=== PATIENT | male | born 1960 | race Caucasian/White ===

== ENCOUNTER 2016-06-18 07:51 | Emergency (ER) | payer MEDICAID ==
[~2016-06-18] VITALS: Ht 177.8 cm; Wt 152.0 kg
[2016-06-18 07:51] VITALS: BP 165/103; PULSE 93; RESP 19; TEMP 97.8; O2SAT 99
--- NOTE | 2016-06-18 07:51 | NUR ---
BROUGHT BACK TO BED #3 AND TRIAGED. REPORT GIVEN TO REBEKAH
[2016-06-18 08:16] LABS: BILIRUBIN,URINE 1+ (NEGATIVE); BLOOD, URINE NEGATIVE (NEGATIVE); CLARITY/URINE CLEAR (CLEAR); COLOR,URINE AMBER (YELLOW); GLUCOSE,URINE 3+ (NEGATIVE); KETONES,URINE TRACE (NEGATIVE); LEUKOCYTE ESTERASE ,URINE NEGATIVE (NEGATIVE); NITRITE, URINE POSITIVE (NEGATIVE); PH,URINE 5.5 (5.0-8.0); PROTEIN URINE TRACE (NEGATIVE)
--- NOTE | 2016-06-18 08:16 | NUR ---
Patient awake in bed, stable condition, alert and oriented x4. States has had a UTI for two weeks that he was treating at home with Azo and cranberry juice but is not working. States symptoms for 2 weeks include: burning with urination, urinary frequency and urgency. Denies hematuria. No other complaints/injuries per patient or noted.
--- NOTE | 2016-06-18 08:17 | NUR ---
Dr. Frazier at bedside examining patient.
[2016-06-18 08:27] LABS: BACTERIA,URINE FEW /HPF (None Seen); MUCUS,URINE None Seen /LPF (None Seen); RBC,URINE 0-3 /HPF (0-3); WBC,URINE 0-3 /HPF (0-3)
[2016-06-18 08:56] VITALS: BP 154/87; PULSE 89; RESP 18; TEMP 97.2; O2SAT 98
--- NOTE | 2016-06-18 08:57 | NUR ---
Patient given written and verbal discharge instructions and verbalizes understanding. ER MD discussed with patient the results and treatment provided. Given copies of tests performed in ER. Patient in stable condition. ID arm band removed. Rx of CIPRO given. Patient educated on pain management and to follow up with PMD. Pain Scale 0/10. Opportunity for questions provided and answered.
== END 2016-06-18 08:56 | disposition home or self-care (01) ==
LOC: SED 07:51
DX: N30.90 Cystitis, unspecified without hematuria (principal); E11.9 Type 2 diabetes mellitus without complications; I10 Essential (primary) hypertension
CPT/HCPCS: 81000-TC; 99283

== ENCOUNTER 2016-09-15 11:22 | Emergency (ER) | payer MEDICAID ==
[~2016-09-15] VITALS: Ht 177.8 cm; Wt 148.3 kg
[2016-09-15 11:30] VITALS: BP_SYST 135
[2016-09-15 12:07] LABS: BILIRUBIN,URINE NEGATIVE (NEGATIVE); BLOOD, URINE NEGATIVE (NEGATIVE); CLARITY/URINE CLEAR (CLEAR); COLOR,URINE YELLOW (YELLOW); GLUCOSE,URINE 3+ (NEGATIVE); KETONES,URINE NEGATIVE (NEGATIVE); LEUKOCYTE ESTERASE ,URINE NEGATIVE (NEGATIVE); NITRITE, URINE NEGATIVE (NEGATIVE); PROTEIN URINE NEGATIVE (NEGATIVE); UROBILINOGEN,URINE 0.2 (0.2-1.0)
[2016-09-15 12:17] LABS: BASOPHILS % (AUTO) 0.5 % (0.0-2.0); EOSINOPHILS # (AUTO) 0.4 K/uL (0.0-0.4); EOSINOPHILS % (AUTO) 6.8 % (0.0-4.0); HEMATOCRIT 42.8 % (36-54); HEMOGLOBIN 14.1 g/dL (14.0-18.0); LYMPHOCYTES # (AUTO) 1.8 K/uL (1.0-5.5); LYMPHOCYTES % (AUTO) 30.1 % (20.5-51.5); MEAN CORPUSCULAR HEMOGLOBIN 29 pg (27-31); MEAN CORPUSCULAR HGB CONC 33 % (32-36); MEAN CORPUSCULAR VOLUME 88 fL (79.0-98.0); MONOCYTES # (AUTO) 0.4 K/uL (0.0-1.0); MONOCYTES % (AUTO) 6.4 % (1.7-9.3); NEUTROPHILS # (AUTO) 3.5 K/uL (1.8-7.7); NEUTROPHILS % (AUTO) 56.2 % (40.0-70.0); PLATELET COUNT (AUTO) 262 K/uL (130-430); RED BLOOD CELL COUNT(AUTO) 4.85 MIL/uL (4.2-6.2); RED CELL DISTRIBUTION WIDTH 12.6 % (9.0-15.0); WHITE BLOOD COUNT (AUTO) 6.1 K/uL (4.8-10.8)
[2016-09-15 12:18] LABS: CALCIUM 9.6 mg/dL (8.4-11.0); CREATININE 0.99 mg/dL (0.55-1.30); POTASSIUM 4.5 mmol/L (3.5-5.1)
[2016-09-15 12:19] LABS: BACTERIA,URINE FEW /HPF (None Seen); MUCUS,URINE None Seen /LPF (None Seen); RBC,URINE 0-3 /HPF (0-3)
[2016-09-15 12:22] LABS: INR 0.9 (0.80-1.20); PROTHROMBIN TIME 10.1 SECS (9.5-12.5)
[2016-09-15 12:23] LABS: ALBUMIN 4.1 g/dL (3.4-4.8); TOTAL BILIRUBIN 0.5 mg/dL (0.0-1.0); TOTAL PROTEIN, SERUM 7.8 g/dL (6.4-8.3)
[2016-09-15] MEDS ORDERED: INSULIN REGULAR, HUMAN 10 UNITS/0.1 ML INJ SUBCUT ONE (12:45)
[2016-09-15 13:27] VITALS: BP_SYST 130
== END 2016-09-15 13:26 | disposition home or self-care (01) ==
LOC: SED 11:22
DX: E11.65 Type 2 diabetes mellitus with hyperglycemia (principal); I10 Essential (primary) hypertension; R35.8 Other polyuria; E66.01 Morbid (severe) obesity due to excess calories; Z68.42 Body mass index [BMI] 45.0-49.9, adult
CPT/HCPCS: 36415; 80053; 81000; 82150; 83690; 85025; 85610; 85730; 87086; 96372; 99284; J1815

== ENCOUNTER 2021-08-15 08:34 | Inpatient (IN) | payer MEDICAID ==
[~2021-08-15] VITALS: Ht 177.8 cm; Wt 189.6 kg
--- NOTE | 2021-08-15 08:35 | NUR ---
Patient to ER bed 08 to gown for evaluation. Side rails up.
--- NOTE | 2021-08-15 08:37 | NUR ---
Pt brought by caregiver, A&Ox4, pt presents to ER with wound/ yellow drainage and fould odor on L foot x 1 week, pt afebrile, skin pink and warm,cap refill <3, VSS, respirations even and unlabored.
[2021-08-15 08:47] VITALS: BP_SYST 179
--- NOTE | 2021-08-15 08:50 | NUR ---
Dr Marion evaluating patient at bedside
[2021-08-15] MEDS ORDERED: PIPERACILLIN/TAZO 3.38 GM in D5W 50 ML IV ONE (09:30)
[2021-08-15] MEDS ORDERED: VANCOMYCIN HCL 1,500 MG in D5W 250 ML IV ONE (09:30)
[2021-08-15] MEDS ORDERED: metroNIDAZOLE 500 MG TABLET PO ONE (09:30)
[2021-08-15] MEDS ORDERED: PIPERACILLIN/TAZOBACTAM 3.375 GM/VIAL (ZOSYN) IV ONE (09:40)
[2021-08-15 09:53] LABS: BASOPHILS # (AUTO) 0.1 K/uL (0.0-0.2); BASOPHILS % (AUTO) 0.8 % (0.0-2.0); EOSINOPHILS # (AUTO) 0.2 K/uL (0.0-0.4); EOSINOPHILS % (AUTO) 3.3 % (0.0-4.0); HEMATOCRIT 35.1 % (36-54); HEMOGLOBIN 11.7 g/dL (14.0-18.0); LYMPHOCYTES # (AUTO) 1.2 K/uL (1.0-5.5); LYMPHOCYTES % (AUTO) 17.2 % (20.5-51.5); MEAN CORPUSCULAR HEMOGLOBIN 28 pg (27-31); MEAN CORPUSCULAR HGB CONC 33 % (32-36); MEAN CORPUSCULAR VOLUME 84 fL (79.0-98.0); MONOCYTES # (AUTO) 0.6 K/uL (0.0-1.0); MONOCYTES % (AUTO) 8.3 % (1.7-9.3); NEUTROPHILS % (AUTO) 70.4 % (40.0-70.0); PLATELET COUNT (AUTO) 279 K/uL (130-430); RED CELL DISTRIBUTION WIDTH 15.4 % (9.0-15.0)
--- NOTE | 2021-08-15 10:10 | NUR ---
US at bedside
[2021-08-15 10:11] LABS: ALANINE AMINOTRANSFERASE 24 U/L (12-78); ALBUMIN 3.6 g/dL (3.4-4.8); ASPARTATE AMINOTRANSFERASE 16 U/L (10-37); CALCIUM 9.2 mg/dL (8.4-11.0); CREATININE 1.06 mg/dL (0.55-1.30); GLUCOSE 125 mg/dL (70-99); TOTAL BILIRUBIN 0.7 mg/dL (0.0-1.0); UREA NITROGEN, BLOOD 15 mg/dL (8-21)
[2021-08-15 10:13] LABS: C-REACTIVE PROTEIN QUANT 3.8 mg/dL (0-0.5); GFR AFRICAN AMERICAN 92 mL/min (>90)
[2021-08-15 10:23] LABS: ANION GAP 12 (5-15); CHLORIDE 100 mmol/L (98-107); POTASSIUM 4.2 mmol/L (3.5-5.1); SODIUM SERUM 139 mmol/L (136-145)
[2021-08-15 10:30] LABS: PROTHROMBIN TIME 10.7 SECS (9.5-12.5)
--- NOTE | 2021-08-15 10:34 | NUR ---
Notified ED Admitting regarding Dr. Marion's request for admission/transfer. Per Dr. Marion, pt is stable for transfer. Will notify insurance customer service specialist regarding this matter. PER FACESHEET: [facility]
[2021-08-15 10:36] LABS: ERYTHROCYTE SEDIMENTATION RATE 37 MM/HR (0-15)
[2021-08-15] MEDS ORDERED: VANCOMYCIN HCL 1000 MG/VIAL IV ONE (10:45)
--- NOTE | 2021-08-15 10:45 | NUR ---
Pt A&Ox4, VSS, respirations even and unlabored, cap refill <3
[2021-08-15] MEDS ORDERED: LIP10 PO (10:53)
[2021-08-15] MEDS ORDERED: METF-380 PO (10:53)
[2021-08-15] MEDS ORDERED: ATEN-41 PO (10:53)
[2021-08-15] MEDS ORDERED: GLIP10TA11 PO (10:53)
[2021-08-15] MEDS ORDERED: PIOG30TA70 PO (10:53)
[2021-08-15] MEDS ORDERED: AMLO2.5T2 PO (10:53)
--- NOTE | 2021-08-15 11:07 | NUR ---
Medication reconciliation completed with information provided by patient . Any prior medication reconciliation on file was reviewed and corrected.
[2021-08-15] MEDS ORDERED: NACL 0.9% 1,000 ML IV ONE (11:15)
--- NOTE | 2021-08-15 11:40 | NUR ---
Patient will be admitted to care of Dr Hodge . Admitted to Medsurg unit. Will go to room 101A . Belongings list completed. Complete and up to date summary report printed. SBAR report to be given at bedside with opportunity for questions.
--- NOTE | 2021-08-15 11:41 | NUR ---
CONSULTATION PAGED/CALLED Reason for Consultation: [] DIABETIC FOOT INFECTION Person Who was Notified: [] ZORAN Consulting Physician: [] DR MELENDEZ Cleaning Professional Specialty: [] ID Ordering Physician: [] DR HERNANDEZ
--- NOTE | 2021-08-15 11:42 | NUR ---
CONSULTATION PAGED/CALLED Reason for Consultation: [] DIABETIC FOOT INFECTION Person Who was Notified: [] PETRONA RODRIGUEZ TEL [phone] Consulting Physician: [] DR JOLIE WALLER Head Sulfide Operator Specialty: [] GEN SURGEON Ordering Physician: [] DR HERNANDEZ
--- NOTE | 2021-08-15 11:49 | NUR ---
DR WALLER INFORMED THAT HE DOES NOT DO PODIATRY SURGERIES.
--- NOTE | 2021-08-15 12:00 | NUR ---
ADMISSION NOTES CAME FROM E.R VIA WHEELCHAIR, 61 YEAR OLD MALE OBESE, WITH BILATERAL LOWER LEG CELLULITIS, PRESENCE OF DISOCLORATION, MULTIPLE SCAB, FLAKY SKIN, LEFT PLANTAR FOOT PRESENCE OF BLACK NECROTIC TISSUE. PATIENT UNSTEADY DUE TO OBESITY AND PRESENCE OF EDEMA AND LEFT FOOT ULCER . USED WALKER TO GO TO THE BATHROOM. NEEDS ASSISTANCE TO BED DUE TO OBESITY. SEEN BY DR HERNANDEZ, WITH CONSULT WITH DR WHITE. PHOTO TAKEN ON BILATERAL LEGS AND WOUND.
[2021-08-15] MEDS ORDERED: ONDANSETRON HCL 4 MG/2 ML VIAL IVP PRN (12:15)
[2021-08-15] MEDS ORDERED: LORazepam 2 MG/ML VIAL IVP PRN (12:15)
[2021-08-15] MEDS ORDERED: ACETAMINOPHEN 325 MG TABLET PO PRN (12:15)
[2021-08-15] MEDS ORDERED: NALOXONE HCL 0.4 MG/ML AMP (NARCAN) IVP PRN ×2 (12:15)
[2021-08-15 12:35] VITALS: BP_SYST 148
[2021-08-15] MEDS: NORMAL SALINE 5 ML DISP.SYRIN IVF SCH ×4 (15:28→23:25)
[2021-08-15] MEDS: PIPERACILLIN/TAZO 3.375/DEX-IS 50 ML IV SCH ×2 (17:03→23:38)
[2021-08-15 17:13] VITALS: BP_SYST 147
--- NOTE | 2021-08-15 17:35 | NUR ---
CONSULTATION PAGED/CALLED Reason for Consultation: [] DIABETIC FOOT INFECTION Person Who was Notified: [] BRITTNEE Consulting Physician: [] DR MONTES, A Staffing Manager Specialty: [] GEN SURGEON Ordering Physician: [] DR HERNANDEZ
--- NOTE | 2021-08-15 17:52 | NUR ---
notes pt sitting in chair, having dinner, IV abt given.
[2021-08-15 19:42] VITALS: BP_SYST 132
[2021-08-15 20:53] VITALS: BP_SYST 132
--- NOTE | 2021-08-15 20:55 | NUR ---
2000: RECEIVED PT SITTING AT EDGE OF BED, NO DISTRESS NOTED, DENIES PAIN. PT AMBULATED TO BATHROOM USING A WALKER, STANDBY ASSIST. BLE WITH EDEMA, DECOLORIZATION, DRYNESS, THICKENED SKIN, DRSG TO LLE CDI.
[2021-08-15] MEDS: ENOXAPARIN SODIUM 40 MG/0.4 ML SYRINGE SUBCUT SCH (21:46)
[2021-08-15] MEDS: ATORVASTATIN 10 MG TABLET PO SCH (21:48)
[2021-08-16 00:50] VITALS: BP_SYST 127
[2021-08-16 02:36] LABS: BILIRUBIN,URINE NEGATIVE (NEGATIVE); BLOOD, URINE 2+ (NEGATIVE); CLARITY/URINE CLEAR (CLEAR); COLOR,URINE YELLOW (YELLOW); GLUCOSE,URINE NEGATIVE (NEGATIVE); KETONES,URINE NEGATIVE (NEGATIVE); LEUKOCYTE ESTERASE ,URINE 1+ (NEGATIVE); NITRITE, URINE NEGATIVE (NEGATIVE); PROTEIN URINE TRACE (NEGATIVE); UROBILINOGEN,URINE 0.2 (0.2-1.0)
[2021-08-16 03:34] LABS: RBC,URINE 20-50 /HPF (0-3); URINE SULFO SALICYLIC ACID NEGATIVE (NEGATIVE)
[2021-08-16 03:35] LABS: BACTERIA,URINE None Seen /HPF (None Seen); YEAST,URINE Moderate /HPF (None Seen)
[2021-08-16 03:36] LABS: CALCIUM OXALATE CRYSTALS,UR None Seen /HPF (None Seen); CALCIUM PHOSPHATE CRYSTALS,UR None Seen /HPF (None Seen); COARSE GRANULAR CASTS,URINE None Seen /LPF (None Seen); FINE GRANULAR CASTS,URINE None Seen /LPF (None Seen); HYALINE CASTS, URINE None Seen /LPF (None Seen); MUCUS,URINE None Seen /LPF (None Seen); OTHER CASTS, URINE None Seen /LPF (None Seen); OTHER CRYSTALS,URINE None Seen /HPF (None Seen); TRICHOMONAS,URINE None Seen /HPF (None Seen); TRIPLE PHOSPHATE CRYSTAL,UR None Seen /HPF (None Seen); URIC ACID CRYSTALS,URINE None Seen /HPF (None Seen); URINE AMORPHOUS PHOSPHATES None Seen /HPF (None Seen); URINE AMORPHOUS URATE None Seen /HPF (None Seen); WAXY CASTS,URINE None Seen /LPF (None Seen)
[2021-08-16] MEDS: PIPERACILLIN/TAZO 3.375/DEX-IS 50 ML IV SCH ×3 (05:20→17:22)
[2021-08-16] MEDS: NORMAL SALINE 5 ML DISP.SYRIN IVF SCH ×4 (05:21→21:20)
[2021-08-16 05:27] VITALS: BP_SYST 120
[2021-08-16 08:20] VITALS: BP_SYST 126
[2021-08-16 08:50] LABS: BASOPHILS % (AUTO) 0.5 % (0.0-2.0); EOSINOPHILS # (AUTO) 0.2 K/uL (0.0-0.4); EOSINOPHILS % (AUTO) 3.5 % (0.0-4.0); HEMATOCRIT 32.8 % (36-54); LYMPHOCYTES # (AUTO) 1.1 K/uL (1.0-5.5); LYMPHOCYTES % (AUTO) 16.1 % (20.5-51.5); MEAN CORPUSCULAR HEMOGLOBIN 28 pg (27-31); MEAN CORPUSCULAR HGB CONC 34 % (32-36); MEAN CORPUSCULAR VOLUME 83 fL (79.0-98.0); MONOCYTES # (AUTO) 0.6 K/uL (0.0-1.0); MONOCYTES % (AUTO) 8.7 % (1.7-9.3); NEUTROPHILS # (AUTO) 4.8 K/uL (1.8-7.7); NEUTROPHILS % (AUTO) 71.2 % (40.0-70.0); PLATELET COUNT (AUTO) 259 K/uL (130-430); RED BLOOD CELL COUNT(AUTO) 3.96 MIL/uL (4.2-6.2); RED CELL DISTRIBUTION WIDTH 15.3 % (9.0-15.0); WHITE BLOOD COUNT (AUTO) 6.7 K/uL (4.8-10.8)
[2021-08-16] MEDS: ATENOLOL 25 MG TABLET(TENORMIN) PO SCH (09:00)
[2021-08-16] MEDS: amLODIPine BESYLATE 5 MG TABLET PO SCH (09:00)
[2021-08-16] MEDS: PIOGLITAZONE HCL 15 MG TABLET PO SCH (09:00)
[2021-08-16 09:50] LABS: ALBUMIN 3.3 g/dL (3.4-4.8); CALCIUM 8.5 mg/dL (8.4-11.0); CREATININE 0.82 mg/dL (0.55-1.30); PHOSPHORUS 3.5 mg/dL (2.7-4.5); POTASSIUM 3.7 mmol/L (3.5-5.1)
[2021-08-16 11:32] VITALS: BP_SYST 135
[2021-08-16] MEDS: HYDROmorphone 1 MG/ML INJ. CARTRIDGE ONE ×2 (11:50→14:50)
[2021-08-16] MEDS ORDERED: HYDROmorphone 1 MG/ML INJ. CARTRIDGE IVP PRN (14:00)
[2021-08-16] MEDS ORDERED: NACL 0.9% 1,000 ML IV SCH (14:00)
[2021-08-16] MEDS ORDERED: METOCLOPRAMIDE HCL 10 MG/2 ML VIAL IVP PRN (14:00)
[2021-08-16] MEDS ORDERED: ONDANSETRON HCL 4 MG/2 ML VIAL IVP PRN (14:00)
[2021-08-16] MEDS ORDERED: MEPERIDINE HCL/PF 25 MG/ML DISP.SYRIN IVP PRN (14:00)
[2021-08-16] MEDS ORDERED: NS 1000 ML IV.SOLN IV ONE (14:30)
[2021-08-16] MEDS ORDERED: NS IRRIG SOLN 1000 ML IR ONE (14:30)
[2021-08-16] MEDS ORDERED: BUPIVACAINE /PF 0.25% 30 ML VIAL INJ ONE (14:30)
[2021-08-16] MEDS ORDERED: fentaNYL CITRATE/PF 100 MCG/2 ML AMP ONE (14:30)
[2021-08-16] MEDS ORDERED: SEVOFLURANE 15 MIN GAS INH ONE (14:30)
[2021-08-16] MEDS ORDERED: PROPOFOL 200MG/ 20ML VIAL (DIPRIVAN) IV ONE (14:30)
[2021-08-16] MEDS: FLUCONAZOLE 100 mg/ NS 50 ML IV SCH (15:52)
[2021-08-16 16:03] VITALS: BP_SYST 139
[2021-08-16] MEDS: VANCOMYCIN HCL 1,750 MG in NS 500 ML IV SCH ×2 (16:12→21:19)
--- NOTE | 2021-08-16 18:32 | NUR ---
0800: PATIENT IS ASLEEP EASILY AROUSABLE WITH VERBAL STIMULI, ORIENTED X 4 TO NAME, PERSON, PLACE AND TIME. RESPIRATION EVEN AND UNLABORED NO S/S OF ANY ACUTE DISTRESS NOTED. ABLE TO VERBALIZE NEEDS NO C/O ANY PAIN OR DISCOMFORT @ THIS TIME. ABDOMEN SOFT AND NON-DISTENDED, POSITIVE BOWEL SOUND X 4NO N/V OR DIARRHEA NOTED. SKIN WARM AND DRY WITH DIABETIC ULCER LEFT FOOT. NPO SCHEDULE FOR I&D AND DEBRIDEMENT TODAY WITH DR. Yanet MONTES. 1130: PATIENT LEFT THE UNIT FOR SURGERY PROCEDURE PLANNED. 1420: BACK FROM SURGERY WITH DRESSING INTACT LEFT FOOT NO S/S OF ANY BLEEDING NOTED. PULSES PALPABLE WITH CONTINUE TO MONITOR PATIENT. 1800: ADMINISTERED ALL IV ANTIBIOTIC ORDERED W/O ANY ADVERSE REACTION NOTED. WILL CONTINUE TO MONITOR PATIENT.
[2021-08-16 21:00] VITALS: BP_SYST 137
--- NOTE | 2021-08-16 21:12 | NUR ---
ASSIST Patient out of bed to Rest Room ambulated with FFW , no SOB noted no dizzy ness FALL MEASURES IMPLEMENTED , CALL rubio given to patient .
[2021-08-16] MEDS: ATORVASTATIN 10 MG TABLET PO SCH (21:17)
[2021-08-16] MEDS: HYDROcodone/ACETAMIN 10-325 MG TAB PO PRN (21:18)
[2021-08-16] MEDS: ENOXAPARIN SODIUM 40 MG/0.4 ML SYRINGE SUBCUT SCH (21:20)
--- NOTE | 2021-08-16 22:58 | NUR ---
LEFT FOOT CATERINA WRAP small amount of sero sang drainage noted Patient awake alert NO ACTIVE BLEEDING CONTINUE TO MONITOR .
--- NOTE | 2021-08-16 23:13 | NUR ---
Munday Tablet 10/325 mg po administer for general pain and helpful , off loading with pillows implemented .
[2021-08-17] MEDS: PIPERACILLIN/TAZO 3.375/DEX-IS 50 ML IV SCH ×3 (00:27→12:17)
[2021-08-17 00:31] VITALS: BP_SYST 136
[2021-08-17] MEDS: VANCOMYCIN HCL 1,750 MG in NS 500 ML IV SCH ×2 (05:05→13:00)
[2021-08-17] MEDS: NORMAL SALINE 5 ML DISP.SYRIN IVF SCH ×3 (05:06→21:21)
[2021-08-17] MEDS: HYDROcodone/ACETAMIN 10-325 MG TAB PO PRN ×2 (05:07→14:59)
[2021-08-17 06:30] LABS: CALCIUM 8.4 mg/dL (8.4-11.0); CREATININE 0.79 mg/dL (0.55-1.30); POTASSIUM 3.5 mmol/L (3.5-5.1)
[2021-08-17 07:10] LABS: BASOPHILS % (AUTO) 0.4 % (0.0-2.0); EOSINOPHILS # (AUTO) 0.2 K/uL (0.0-0.4); EOSINOPHILS % (AUTO) 3.5 % (0.0-4.0); HEMATOCRIT 33.8 % (36-54); HEMOGLOBIN 11.3 g/dL (14.0-18.0); LYMPHOCYTES # (AUTO) 1.1 K/uL (1.0-5.5); LYMPHOCYTES % (AUTO) 15.2 % (20.5-51.5); MEAN CORPUSCULAR HEMOGLOBIN 28 pg (27-31); MEAN CORPUSCULAR HGB CONC 33 % (32-36); MEAN CORPUSCULAR VOLUME 83 fL (79.0-98.0); MONOCYTES # (AUTO) 0.6 K/uL (0.0-1.0); MONOCYTES % (AUTO) 8.8 % (1.7-9.3); NEUTROPHILS # (AUTO) 5.1 K/uL (1.8-7.7); NEUTROPHILS % (AUTO) 72.1 % (40.0-70.0); PLATELET COUNT (AUTO) 263 K/uL (130-430); RED BLOOD CELL COUNT(AUTO) 4.05 MIL/uL (4.2-6.2); RED CELL DISTRIBUTION WIDTH 15.2 % (9.0-15.0); WHITE BLOOD COUNT (AUTO) 7.1 K/uL (4.8-10.8)
[2021-08-17] MEDS: PIOGLITAZONE HCL 15 MG TABLET PO SCH (09:17)
[2021-08-17] MEDS: amLODIPine BESYLATE 5 MG TABLET PO SCH (09:18)
[2021-08-17] MEDS: ATENOLOL 25 MG TABLET(TENORMIN) PO SCH (09:19)
--- NOTE | 2021-08-17 09:53 | NUR ---
Discharge Planning: SCP faxed referral to [facility] P# [phone] PT/IV meds. DCP to follow up. Addendum: 08/17/21 at 1529 by Tiffany Rodriguez DP Radha at [facility] gave contracted home health 1) [facility] P#[phone] F#[phone] and [facility] P#[phone] F#[phone] SCP faxed pt referral to both.
[2021-08-17] MEDS ORDERED: IOHEXOL 350 mgI/mL, 150 ML INFUS..BTL IV ONE (10:26)
[2021-08-17] MEDS: FLUCONAZOLE 100 mg/ NS 50 ML IV SCH (11:00)
[2021-08-17 11:12] LABS: ERYTHROCYTE SEDIMENTATION RATE 41 MM/HR (0-15)
[2021-08-17 11:59] VITALS: BP_SYST 142
--- NOTE | 2021-08-17 13:42 | NUR ---
Dietitian Recommendations 2gmNa, cardiac, CCHO. Prosper BID (supplement provides an additional 160 kcals/day and 5 g protein/day. Please refer to Nutrition Assessment 08/17/21 for details. Signed: 08/17/21 at 1343 by Sharon BROWN <Co-Signature Required> Co-Signed: 08/17/21 at [address] Addendum: 08/17/21 at 1343 by Sharon BROWN Amended: Links added.
--- NOTE | 2021-08-17 16:44 | NUR ---
HIGH ALERT NOTE: Called back at NUMBERS identified within the medical roster to verify physician authenticity.OBTAINED ORDER FOR REGULR INSULIN SLIDING SCALE
[2021-08-17 16:55] VITALS: BP_SYST 128
[2021-08-17] MEDS ORDERED: INSULIN REGULAR, HUMAN 100 UNITS/ML, 10 ML VIAL (humuLIN R) SUBCUT PRN (17:00)
[2021-08-17] MEDS ORDERED: INSULIN REGULAR, HUMAN 100 UNITS/ML, 10 ML VIAL SUBCUT SCH (17:00)
[2021-08-17] MEDS: AMPICILLIN SODIUM 2 GM in NS 100 ML IV SCH (18:22)
[2021-08-17 20:00] VITALS: BP_SYST 144
[2021-08-17] MEDS: ATORVASTATIN 10 MG TABLET PO SCH (21:15)
[2021-08-17] MEDS: ENOXAPARIN SODIUM 40 MG/0.4 ML SYRINGE SUBCUT SCH (21:20)
--- NOTE | 2021-08-17 21:33 | NUR ---
MEDS Scheduled medications given. Reviewed side effects (Lovenox) and he verbalized understanding. He ambulated to restroom with use of FWW and I assisted with return to bed. Sanguinous drainage noted and reinforced with ABD pad and re-wrapped CATERINA bandabe. Presently no pain. Requested warm blanket and it was provided. Resting in bed, no distress and call light w/in reach. WCTM
[2021-08-18] MEDS: HYDROcodone/ACETAMIN 5-325 MG TAB (NORCO/ VICODIN) PO PRN ×3 (00:24→22:29)
[2021-08-18 00:25] VITALS: BP_SYST 149
[2021-08-18] MEDS: AMPICILLIN SODIUM 2 GM in NS 100 ML IV SCH ×5 (00:25→23:50)
--- NOTE | 2021-08-18 00:25 | NUR ---
Antibiotic, Pain med Patient is awake, no distress. He ambulated to restroom; voided and had a bowel movement. Returned to bed. Due antibiotic, Ampicillin administered and infusing well via RAC. [place] given for moderate pain (08/15). Reviewed medication side effects and he verbalized understanding.
[2021-08-18] MEDS: NORMAL SALINE 5 ML DISP.SYRIN IVF SCH ×3 (05:17→22:15)
[2021-08-18 06:40] LABS: BASOPHILS % (AUTO) 0.6 % (0.0-2.0); EOSINOPHILS # (AUTO) 0.3 K/uL (0.0-0.4); HEMATOCRIT 34.4 % (36-54); HEMOGLOBIN 11.6 g/dL (14.0-18.0); LYMPHOCYTES # (AUTO) 1.3 K/uL (1.0-5.5); LYMPHOCYTES % (AUTO) 18.9 % (20.5-51.5); MEAN CORPUSCULAR HEMOGLOBIN 28 pg (27-31); MEAN CORPUSCULAR HGB CONC 34 % (32-36); MEAN CORPUSCULAR VOLUME 83 fL (79.0-98.0); MONOCYTES # (AUTO) 0.7 K/uL (0.0-1.0); MONOCYTES % (AUTO) 9.7 % (1.7-9.3); NEUTROPHILS # (AUTO) 4.6 K/uL (1.8-7.7); NEUTROPHILS % (AUTO) 66.8 % (40.0-70.0); PLATELET COUNT (AUTO) 277 K/uL (130-430); RED BLOOD CELL COUNT(AUTO) 4.13 MIL/uL (4.2-6.2); RED CELL DISTRIBUTION WIDTH 15.6 % (9.0-15.0); WHITE BLOOD COUNT (AUTO) 6.9 K/uL (4.8-10.8)
[2021-08-18 08:50] LABS: C-REACTIVE PROTEIN QUANT 6.6 mg/dL (0-0.5); CALCIUM 8.6 mg/dL (8.4-11.0); CREATININE 0.83 mg/dL (0.55-1.30); POTASSIUM 3.6 mmol/L (3.5-5.1)
[2021-08-18 09:35] LABS: ERYTHROCYTE SEDIMENTATION RATE 47 MM/HR (0-15)
--- NOTE | 2021-08-18 09:53 | NUR ---
PHYSICAL THERAPY EVALUATION IS PENDING LEFT FOOT WEIGHT BEARING ORDER. RN IS TO CONTACT .
[2021-08-18] MEDS ORDERED: ATEN-41 PO (09:59)
[2021-08-18] MEDS ORDERED: LIP10 PO (09:59)
[2021-08-18] MEDS ORDERED: AMPI2VIA IJ (09:59)
[2021-08-18] MEDS ORDERED: GLIP10TA11 PO (09:59)
[2021-08-18] MEDS ORDERED: METF-380 PO (09:59)
[2021-08-18] MEDS ORDERED: AMLO2.5T2 PO (09:59)
[2021-08-18] MEDS ORDERED: HYDR-3927 PO (09:59)
[2021-08-18] MEDS ORDERED: HYDR-3919 PO (09:59)
[2021-08-18] MEDS ORDERED: PIOG30TA70 PO (09:59)
[2021-08-18] MEDS ORDERED: DIF100 PO (10:03)
[2021-08-18] MEDS: PIOGLITAZONE HCL 15 MG TABLET PO SCH (10:06)
[2021-08-18] MEDS: amLODIPine BESYLATE 5 MG TABLET PO SCH (10:07)
[2021-08-18 11:15] LABS: INR 1.1 (0.80-1.20); PROTHROMBIN TIME 11.5 SECS (9.5-12.5)
[2021-08-18] MEDS: FLUCONAZOLE 100 mg/ NS 50 ML IV SCH (11:21)
[2021-08-18 12:20] VITALS: BP_SYST 148
[2021-08-18] MEDS: ATENOLOL 25 MG TABLET(TENORMIN) PO SCH (13:51)
[2021-08-18 16:26] VITALS: BP_SYST 151
--- NOTE | 2021-08-18 19:35 | NUR ---
Opening note Received patient awake, AOx4, resting in bed, no distress. On room air, nonlabored breathing. IV to right wrist is KVO. Denies pain and is inquiring about wifi access. Bed is locked in lowest position. Side rails up 3x, and bed alarm off. He ambulates to restroom with use of FWW which is at bedside.
[2021-08-18 20:00] VITALS: BP_SYST 136
[2021-08-18] MEDS: ATORVASTATIN 10 MG TABLET PO SCH (22:12)
[2021-08-18] MEDS: ENOXAPARIN SODIUM 40 MG/0.4 ML SYRINGE SUBCUT SCH (22:13)
--- NOTE | 2021-08-18 22:30 | NUR ---
pain med reporting left foot pain 4/10 and [place] given as ordered.
--- NOTE | 2021-08-18 23:55 | NUR ---
Antibiotic Scheduled Ampicillin administered as ordered. Infusing well and tolerating
[2021-08-19 01:33] VITALS: BP_SYST 125
[2021-08-19] MEDS: AMPICILLIN SODIUM 2 GM in NS 100 ML IV SCH ×3 (05:29→17:02)
[2021-08-19] MEDS: NORMAL SALINE 5 ML DISP.SYRIN IVF SCH ×3 (06:29→22:29)
--- NOTE | 2021-08-19 06:34 | NUR ---
closing note Patient is awake, no distress, though does voice stress due to concern of possible outcome of test results regarding his foot. Accucheck done and result of 87mg/dL obtained. He is sitting up right with one leg dangle and presently saline locked. FWW at bedside w/in reach. Safety precautions maintained throughout shift. will endorse care.
--- NOTE | 2021-08-19 07:30 | NUR ---
RECEIVED PT FROM MONTY BRAY. ASSUMED ALL CARE.
[2021-08-19 07:36] LABS: C-REACTIVE PROTEIN QUANT 6.6 mg/dL (0-0.5); CALCIUM 8.6 mg/dL (8.4-11.0); CREATININE 0.83 mg/dL (0.55-1.30); POTASSIUM 3.7 mmol/L (3.5-5.1)
[2021-08-19 07:55] VITALS: BP_SYST 144
[2021-08-19 08:14] LABS: BASOPHILS % (AUTO) 0.6 % (0.0-2.0); EOSINOPHILS # (AUTO) 0.3 K/uL (0.0-0.4); EOSINOPHILS % (AUTO) 4.9 % (0.0-4.0); HEMOGLOBIN 11.1 g/dL (14.0-18.0); LYMPHOCYTES # (AUTO) 1.3 K/uL (1.0-5.5); LYMPHOCYTES % (AUTO) 22.5 % (20.5-51.5); MEAN CORPUSCULAR HEMOGLOBIN 28 pg (27-31); MEAN CORPUSCULAR HGB CONC 34 % (32-36); MEAN CORPUSCULAR VOLUME 83 fL (79.0-98.0); MONOCYTES # (AUTO) 0.6 K/uL (0.0-1.0); NEUTROPHILS # (AUTO) 3.7 K/uL (1.8-7.7); PLATELET COUNT (AUTO) 262 K/uL (130-430); RED BLOOD CELL COUNT(AUTO) 3.96 MIL/uL (4.2-6.2); RED CELL DISTRIBUTION WIDTH 15.6 % (9.0-15.0)
[2021-08-19] MEDS: amLODIPine BESYLATE 5 MG TABLET PO SCH (09:00)
[2021-08-19] MEDS: ATENOLOL 25 MG TABLET(TENORMIN) PO SCH (09:01)
[2021-08-19] MEDS: PIOGLITAZONE HCL 15 MG TABLET PO SCH (09:03)
--- NOTE | 2021-08-19 09:05 | NUR ---
SCHEDULED MEDS GIVEN AND TOLERATED WELL. B/P 144.76, HR 75. PT EDUCATED TO BE NON WEIGHT BEARING TO R FOOT. BED SIDE COMMODE BROUGHT TO ROOM. PT DENIES PAIN. CALL LIGHT WITHIN REACH. BED IN LOWEST POSITION.
--- NOTE | 2021-08-19 10:43 | NUR ---
Discharge Planning: DCP emailed Radha P#[phone] and John P#[phone] making them aware of the out come of home healths provided. [facility], [facility] do not service this area and [facility] only service trach/vent /gtube patients. DCP to follow up
[2021-08-19] MEDS: FLUCONAZOLE 100 mg/ NS 50 ML IV SCH (11:57)
[2021-08-19 12:17] VITALS: BP_SYST 149
--- NOTE | 2021-08-19 12:36 | NUR ---
PT RECEIVING PICC LINE PLACEMENT AT THIS TIME. PT ASISTED TO BEDSIDE COMMODE AND IS BACK IN BED.
[2021-08-19 13:43] LABS: ERYTHROCYTE SEDIMENTATION RATE 46 MM/HR (0-15)
--- NOTE | 2021-08-19 13:58 | NUR ---
P.T. NOTES P.T. EVAL COMPLETED; REFER TO EVAL FOR DETAILS; MULT ATTEMPTS EARLIER DUE TO [facility] PROCEDURES.
--- NOTE | 2021-08-19 14:42 | NUR ---
REPORTED TO DR. HERNANDEZ XRAY RESULTS FOR AMY PICC LINE, RECEIVED ORDER OKAY TO USE PICC LINE. IV CATH TO HAND PULLED OUT INTACT. SITE WNL. COVERED WITH GAUZE AND BANDAID.
--- NOTE | 2021-08-19 14:44 | NUR ---
Nutrition F/U Admitting Diagnosis Diabetic Foot Infection Reviewed Pertinent Medical/Surgical Hx Medical Record Other Pt Medical History Comment: Per EMR review, PMH includes CAD, DM, HTN, morbid obesity, diabetic peripheral neuropathy. SARS-CoV-2 Ag (Rapid) Negative 08/15. Subjective Information Per EMR review, eder score 18, multiple wounds noted on L posterior foot and R ankle, incision and wound noted on bilateral lower legs, 1+ non-pitting edema on bilateral foot, non-pitting edema on BLE. Pt is s/p incision and drainage of L plantar foot, wound infection, gangrene, and fasciitis. Pt w/ fair PO intake of 63% x4 meal records. DI rounded to pt's bedside, RN was at bedside as well. Pt reports eating well, low appetite at times d/t medications. DI informed pt and RN they would be receiving Prosper on tray, pt accepted and prefers fruit punch flavor. Current Diet Order/Nutrition Support 2gmNa, CCHO-60 g x2 days Education Provided Not Indicated Pertinent Medications lovenox, lipitor, glucatrol, metformin, SSI Pertinent Labs Reviewed, WNL Height (Feet) 5 feet Height (Inches) 10.00 inches Weight (Pounds) 418 pounds no changes since 08/17 Weight (Calculated Kilograms) 189.609799 kilograms Patient Weight 189.602 kg Body Mass Index 59.97 kg/m2 %IBW 252 [place]/Adjusted Body Weight 166#/75.5 kg; AdjBW: 229#/104.1 kg Usual Diet At Home Diabetic diet per nursing assessment (*ongoing) Estimated Energy Expenditure (kcals/day) 2318-8477 kcals/day (30-35 kcals/kg IBW d/t post-op,wound healing,obesity) (*ongoing) Estimated Protein Required (g/day) 113-151 g/day (1.5-2 g/kg IBW d/t post-op,wound healing,obesity) (*ongoing) Estimated Fluid Required (l/day) 2.3-2.6 L/day (1 mL/kcal for maintenance) Problem/Etiology/Signs/Symptoms Increased nutritional needs R/T physiological demands AEB estimated nutritional requirements for sepsis and wound healing. (*ongoing) Altered nutrition-related lab values R/T endocrine dysfunction AEB BG 109 H, POC BG 115 H. (*improving) Expected Outcomes/Goals Monitor appetite and PO intake w/ goal of pt meeting more than 90% of estimated nutritional needs, labs trending WNL, normal GI function, skin integrity/wt maintenance. Dietitian Recommendations Cardiac, CCHO diet. Prosper BID (supplement provides an additional 180 kcals/day and 5 g protein/day) Follow Up Moderate Risk: F/U in 3-5 days Signed: 08/19/21 at 1445 by Sharon BORWN <Co-Signature Required> Co-Signed: 08/19/21 at [address]
--- NOTE | 2021-08-19 14:45 | NUR ---
Dietitian Recommendations Cardiac, CCHO diet. Prosper BID (supplement provides an additional 180 kcals/day and 5 g protein/day) LP, RD Please refer to Nutrition F/U for details. Signed: 08/19/21 at 1446 by Sharon BROWN <Co-Signature Required> Co-Signed: 08/19/21 at [address]
--- NOTE | 2021-08-19 16:00 | NUR ---
DRESSING CHANGE PREFORMED TO L FOOT, AND POST OP PICTURE TAKEN AND PLACED IN THE CHART.
--- NOTE | 2021-08-19 16:00 | NUR ---
WOUND EVALUATION: Late note for 08/19/2021 at 1600 secondary to patient care. Wound Consult received from Dr. Montgomery. Thank you, Dr. Montgomery, for the consult. Patient received in a Jose Bed with an Isoflex MICHAELA mattress, awake, alert, and oriented. Patient is able to turn in bed independently. Joseluis Score is a 16. Past Medical History: Coronary artery disease, Diabetes Mellitus, Hypertension, Left Lower Extremity Cellulitis, Morbid Obesity, and Diabetic Peripheral Neuropathy. Patient was admitted for persistent pain, swelling and foul smelling discharge from the left heel (wound was sustained after cutting his left heel on a metal wire that was on the floor about 2 months ago). Recent Labs: WBC 6.0, RBC 3.96, hemoglobin 11.1, hematocrit 33.0, ESR 46, BUN 11, creatinine 0.83, GFR 100, C-reactive protein 6.6, albumin 3.3. Microbiology: Foot abscess cultures results positive for Streptococcus group B (aerobic); Anaerobic culture results negative. Blood culture results x2 negative. MRSA screen results negative. Surgical specimen culture results in progress. Intrinsic factors that delay wound healing: Coronary artery disease, Diabetes Mellitus, Hypertension. Extrinsic factors that delay wound healing: Decreased mobility. Left plantar foot diabetic ulcer is status post Incision and Debridement by Dr. Barraza on 08/16/2021. Wound Assessment: 1. Left Plantar Foot near Heel: Diabetic Ulcer, present on admission. Wound bed has 70% yellow slough, 30% red tissue. Mild odor, scant yellow drainage. Periwound intact. Wound is in the shape of a "+" sign with residual skin folds. Measures 7.3 cm x 6.5 cm x 2.0. Recommend: Cleanse wound with normal saline. Apply sure prep to ryan-wound. Apply Venelex ointment to wound bed. Pack wound with 1/4 inch iodoform packing strip. Cover with gauze. Wrap with Veena wrap. Secured with Pierre wrap. Perform wound care daily, and as needed for dressing soiling or dislodgement. Also recommend: Encourage and assist patient as needed with repositioning every 2 hours with pillow support and off-load pressure areas with pillows for pressure re-distribution. Offload, elevate and float bilateral heels with pillows. Perform skin care and monitor skin integrity Q shift.
[2021-08-19] MEDS: HYDROcodone/ACETAMIN 5-325 MG TAB (NORCO/ VICODIN) PO PRN (17:01)
[2021-08-19 17:16] VITALS: BP_SYST 128
--- NOTE | 2021-08-19 17:30 | NUR ---
NORCO PO PRN GIVEN FOR L FOOT PAIN 11/14. EXTRA FLUIDS GIVEN AND ENCOURAGED. PT REPOSITIONED FOR COMFORT. L FOOT ELEVATED ON PILLOW.
--- NOTE | 2021-08-19 19:45 | NUR ---
ENDORSED ALL CARE TO MONTY SALAMANCA.
[2021-08-19 20:00] VITALS: BP_SYST 133
[2021-08-19] MEDS: ATORVASTATIN 10 MG TABLET PO SCH (22:28)
[2021-08-19] MEDS: ENOXAPARIN SODIUM 40 MG/0.4 ML SYRINGE SUBCUT SCH (22:34)
[2021-08-20 00:35] VITALS: BP_SYST 133
[2021-08-20] MEDS: HYDROcodone/ACETAMIN 10-325 MG TAB PO PRN (00:57)
[2021-08-20] MEDS: AMPICILLIN SODIUM 2 GM in NS 100 ML IV SCH ×4 (00:59→18:07)
[2021-08-20] MEDS: NORMAL SALINE 5 ML DISP.SYRIN IVF SCH ×3 (06:57→21:54)
[2021-08-20 07:01] LABS: BASOPHILS # (AUTO) 0.1 K/uL (0.0-0.2); BASOPHILS % (AUTO) 0.9 % (0.0-2.0); EOSINOPHILS # (AUTO) 0.3 K/uL (0.0-0.4); EOSINOPHILS % (AUTO) 6.1 % (0.0-4.0); HEMATOCRIT 36.2 % (36-54); HEMOGLOBIN 12.1 g/dL (14.0-18.0); LYMPHOCYTES # (AUTO) 1.4 K/uL (1.0-5.5); LYMPHOCYTES % (AUTO) 24.1 % (20.5-51.5); MEAN CORPUSCULAR HEMOGLOBIN 28 pg (27-31); MEAN CORPUSCULAR HGB CONC 34 % (32-36); MEAN CORPUSCULAR VOLUME 83 fL (79.0-98.0); MONOCYTES # (AUTO) 0.5 K/uL (0.0-1.0); MONOCYTES % (AUTO) 8.7 % (1.7-9.3); NEUTROPHILS # (AUTO) 3.4 K/uL (1.8-7.7); NEUTROPHILS % (AUTO) 60.2 % (40.0-70.0); PLATELET COUNT (AUTO) 290 K/uL (130-430); RED BLOOD CELL COUNT(AUTO) 4.35 MIL/uL (4.2-6.2); RED CELL DISTRIBUTION WIDTH 15.5 % (9.0-15.0); WHITE BLOOD COUNT (AUTO) 5.7 K/uL (4.8-10.8)
[2021-08-20 07:53] LABS: ALBUMIN 3.7 g/dL (3.4-4.8); CALCIUM 9.6 mg/dL (8.4-11.0); CREATININE 0.83 mg/dL (0.55-1.30); POTASSIUM 3.6 mmol/L (3.5-5.1); TOTAL BILIRUBIN 0.8 mg/dL (0.0-1.0)
--- NOTE | 2021-08-20 08:00 | NUR ---
Patient resting comfortably in bed with no distress noted at this time.
[2021-08-20 08:23] LABS: ERYTHROCYTE SEDIMENTATION RATE 46 MM/HR (0-15)
[2021-08-20] MEDS: amLODIPine BESYLATE 5 MG TABLET PO SCH (10:03)
[2021-08-20] MEDS: ATENOLOL 25 MG TABLET(TENORMIN) PO SCH (10:03)
[2021-08-20] MEDS: PIOGLITAZONE HCL 15 MG TABLET PO SCH (10:04)
--- NOTE | 2021-08-20 10:04 | NUR ---
Scheduled medications given per order. Patient stable; resting comfortably in bed with no complaint of pain at this time.
[2021-08-20 10:05] VITALS: BP_SYST 128
[2021-08-20] MEDS: FLUCONAZOLE 100 mg/ NS 50 ML IV SCH (10:11)
--- NOTE | 2021-08-20 10:12 | NUR ---
Scheduled IV abx given per order. Patient sitting on side of bed with no distress noted.
[2021-08-20 12:00] VITALS: BP_SYST 130
--- NOTE | 2021-08-20 12:35 | NUR ---
Checked blood sugar: 126 mg/dl - no coverage required. Scheduled IV abx given per order. Patient sitting on side of bed with no distress noted at this time.
--- NOTE | 2021-08-20 12:41 | NUR ---
PAGED PAGED ELVI OLSEN AT [phone] SPOKE WITH ZORAN.
--- NOTE | 2021-08-20 13:25 | NUR ---
Patient sitting on side of bed with Dr. Yanet Montgomery at bedside. Patient stable.
--- NOTE | 2021-08-20 14:16 | NUR ---
Patient did not want treatment today because he feels confident with his transfers. He feels that he is ready to go home and that he will be safe with his functional mobility. Patient reports having a wheelchair and FWW at home. He will have caregiver assistance as needed.
[2021-08-20] MEDS ORDERED: BALSAM PERU/CASTOR OIL 56.7 GM OINT...G. TP ONE (15:15)
[2021-08-20 15:30] VITALS: BP_SYST 130
--- NOTE | 2021-08-20 15:53 | NUR ---
CM: Re AMA: I explained the risks of leaving AMA that he will miss his scheduled IV ABX and CM is unable to continue looking for the accepting home health agency. He aware that he is required to have IV abx for 6 weeks per ID order. [facility] is already accepting the pt and may possible have the infusion nurse this pm. The pt is to make decision either to leave AMA or remain in hospital until the HH is set up.
--- NOTE | 2021-08-20 16:19 | NUR ---
Discharge Planning: DCP faxed home health order to [facility] P# [phone] no IV nurse/no staff in area. [facility] [phone] Jolly [phone] was looking for nurse to help with IV.
[2021-08-20 16:29] VITALS: BP_SYST 129
--- NOTE | 2021-08-20 18:07 | NUR ---
Scheduled IV abx and po medications given per order. Checked blood sugar: 145 mg/dl - no coverage required. Patient sitting on side of bed; stable throughout shift.
[2021-08-20] MEDS: ATORVASTATIN 10 MG TABLET PO SCH (21:54)
[2021-08-20] MEDS: ENOXAPARIN SODIUM 40 MG/0.4 ML SYRINGE SUBCUT SCH (21:55)
[2021-08-21 00:17] VITALS: BP_SYST 135
[2021-08-21] MEDS: AMPICILLIN SODIUM 2 GM in NS 100 ML IV SCH ×3 (01:09→14:15)
--- NOTE | 2021-08-21 05:44 | NUR ---
Rounds/Closing Patient resting in bed, unlabored breathing on room air. Lower extremities elevated with pillows. CATERINA wrap changed as needed. Patient ambulated to bathroom with walker. No complaint of pain. Patient states that he talked with [facility] in the evening and they told him that they have nurses available to start home administration of IV antibiotics and to teach his caregiver how to administer the antibiotics. Call light in reach, fall and safety precautions maintained throughout shift.
[2021-08-21] MEDS: NORMAL SALINE 5 ML DISP.SYRIN IVF SCH ×2 (06:52→14:17)
[2021-08-21 07:47] LABS: BASOPHILS % (AUTO) 0.7 % (0.0-2.0); EOSINOPHILS # (AUTO) 0.4 K/uL (0.0-0.4); EOSINOPHILS % (AUTO) 6.1 % (0.0-4.0); HEMATOCRIT 34.3 % (36-54); HEMOGLOBIN 11.3 g/dL (14.0-18.0); LYMPHOCYTES # (AUTO) 1.5 K/uL (1.0-5.5); LYMPHOCYTES % (AUTO) 25.4 % (20.5-51.5); MEAN CORPUSCULAR HEMOGLOBIN 28 pg (27-31); MEAN CORPUSCULAR HGB CONC 33 % (32-36); MEAN CORPUSCULAR VOLUME 83 fL (79.0-98.0); MONOCYTES # (AUTO) 0.5 K/uL (0.0-1.0); NEUTROPHILS # (AUTO) 3.5 K/uL (1.8-7.7); NEUTROPHILS % (AUTO) 58.8 % (40.0-70.0); PLATELET COUNT (AUTO) 285 K/uL (130-430); RED BLOOD CELL COUNT(AUTO) 4.13 MIL/uL (4.2-6.2); RED CELL DISTRIBUTION WIDTH 15.5 % (9.0-15.0); WHITE BLOOD COUNT (AUTO) 5.9 K/uL (4.8-10.8)
[2021-08-21 08:00] VITALS: BP_SYST 157
--- NOTE | 2021-08-21 08:00 | NUR ---
Morning notes: Pt A/Ox4 sitting in bed, with left foot elevated and right foot on the floor, both feet wrapped, dressing are clean dry and intact. AMY PICC is clean dry and intact. No s/s of respiratory or cardiac distress. Fall and safety precautions in place, call light within reach, will continue to monitor.
[2021-08-21 08:13] LABS: CALCIUM 9.4 mg/dL (8.4-11.0); CREATININE 0.7 mg/dL (0.55-1.30); POTASSIUM 3.6 mmol/L (3.5-5.1)
[2021-08-21 08:20] LABS: C-REACTIVE PROTEIN QUANT 2.8 mg/dL (0-0.5)
[2021-08-21] MEDS: ATENOLOL 25 MG TABLET(TENORMIN) PO SCH (08:56)
[2021-08-21] MEDS ORDERED: BALSAM PERU/CASTOR OIL 56.7 GM OINT...G. TP SCH (09:00)
[2021-08-21] MEDS: PIOGLITAZONE HCL 15 MG TABLET PO SCH (09:00)
[2021-08-21] MEDS: amLODIPine BESYLATE 5 MG TABLET PO SCH (09:00)
[2021-08-21 09:21] LABS: ERYTHROCYTE SEDIMENTATION RATE 37 MM/HR (0-15)
[2021-08-21] MEDS: FLUCONAZOLE 100 mg/ NS 50 ML IV SCH (11:54)
[2021-08-21 12:00] VITALS: BP_SYST 142
--- NOTE | 2021-08-21 15:00 | NUR ---
CM: late entry: Home health search per new HH list provided by yvan Calvo at [facility]. [facility]- not taking [facility] ( per Madeline,intake) [facility], per August, not taking [facility] [phone], [facility], Per Samira : not contracted with [facility]-- not taking [facility] patient [facility] # [phone] FAX # [phone]: S/W and faxed the referral to [facility] for review. She accepted and get auth to see pt on Wednesday 08/23.
--- NOTE | 2021-08-21 15:26 | NUR ---
CM: per patient reported that the iv medication already delivered to his home and [facility] nurse already confirmed appointment for tonight at 9 pm. The pt will be discharged after 6 pm iv med completion. MONTY Escamilla is to do the wound teaching to patient and caregiver and to provide wound care supplies / diabetic shoe. >> Pt aware that the shoe is being arranged or to be approved by his insurance, cm/dcp to f/u on Monday . Home health: [facility] # [phone] will visit patient on Monday for wound care, PICC line care. IV infusion: [facility]# [phone]/ IV nurse Catarina scheduled to visit the pt tonight at 9 pm
[2021-08-21 15:54] VITALS: BP_SYST 150
--- NOTE | 2021-08-21 16:31 | NUR ---
Nutrition F/U Admitting Diagnosis Diabetic Foot Infection Reviewed Pertinent Medical/Surgical Hx Medical Record Other Pt Medical History Comment: Per EMR review, PMH includes CAD, DM, HTN, morbid obesity, diabetic peripheral neuropathy. SARS-CoV-2 Ag (Rapid) Negative 08/15. Subjective Information: RD rounded to pt's room this afternoon. Pt reported that he has been eating well and also enjoying Prosper supplements. His caregiver bought a box at a local drug store and plans to take them at home as well. RD offered [employer] coupons; pt appreciative. Pt denied any N/V/C/D and LBM x1 this afternoon. Per EMR review, pt has active D/C home orders w/ home health in place; pt declined BKA offered by surgeon; PO intake average of 67% x3 meal records; abd is soft and non-distended w/ active bowel sounds; Joseluis scale: 19 -- per Pressing Machine Operator note 08/19, 1. Left Plantar Foot near Heel: Diabetic Ulcer, present on admission. Wound bed has 70% yellow slough, 30% red tissue. Mild odor, scant yellow drainage. Periwound intact. Wound is in the shape of a "+" sign with residual skin folds. Measures 7.3 cm x 6.5 cm x 2.0. Current diet order is adequate/appropriate. Current Diet Order/Nutrition Support: CCHO, cardiac, Prosper BID x2 days Education Provided Pt declined 08/21 Pertinent Medications glucophage, glipizide Pertinent Labs 08/19-08/21: POC BG 77 WNL-145 H, CRP 2.8 H Height (Feet) 5 feet Height (Inches) 10.00 inches Weight (Pounds) 418 pounds no changes since 08/17 Weight (Calculated Kilograms) 189.298453 kilograms Patient Weight 189.602 kg Body Mass Index 59.97 kg/m2 %IBW 252 [place]/Adjusted Body Weight 166#/75.5 kg; AdjBW: 229#/104.1 kg Usual Diet At Home Diabetic diet per nursing assessment Estimated Energy Expenditure (kcals/day) 4813-5433 kcals/day (30-35 kcals/kg IBW d/t post-op,wound healing,obesity) Estimated Protein Required (g/day) 113-151 g/day (1.5-2 g/kg IBW d/t post-op,wound healing,obesity) Estimated Fluid Required (l/day) 2.3-2.6 L/day (1 mL/kcal for maintenance) Problem/Etiology/Signs/Symptoms Increased nutritional needs R/T physiological demands AEB estimated nutritional requirements for sepsis and wound healing. (*Ongoing) Altered nutrition-related lab values R/T endocrine dysfunction AEB BG 109 H, POC BG 115 H. (*Improving) Expected Outcomes/Goals Monitor appetite and PO intake w/ goal of pt meeting more than 90% of estimated nutritional needs, labs trending WNL, normal GI function, skin integrity/wt maintenance. Dietitian Recommendations * Continue Cardiac, CCHO diet, Prosper BID (supplement provides an additional 180 kcals/day and 5 g protein/day) * RD provided Prosper mavisponmason Follow Up Moderate Risk: F/U in 3-5 days Addendum: 08/21/21 at [address] Nutrition Consult received for Diabetic Ulcer L Plantar Foot 08/20/21 6808
--- NOTE | 2021-08-21 16:35 | NUR ---
Dietitian Recommendations * Continue Cardiac, CCHO diet, Prosper BID (supplement provides an additional 180 kcals/day and 5 g protein/day) * RD provided Prosper chacko LP, RD Please refer to Nutrition F/U for details.
--- NOTE | 2021-08-21 16:45 | NUR ---
D/C Patient Patient given medication reconciliation form and D/C and wound care instructions. Exit Care provided. Patient verbalized understanding. MD discussed with patient the results and treatment provided. Ambulatory with steady gait for discharge to home. Patient in stable condition, ID band removed. No boot in correct size for pt,Pt verbalize understanding of needing to follow up with Home Health about getting the correct size with ins. Patient educated on pain management. All belongings sent with patient.
== END 2021-08-21 13:00 | disposition home health service (06) | DRG 720 ==
LOC: SED 08:34 → SMU 11:02
PROVIDERS: ADMIT Preventive Medicine Preventive Medicine/Occupational Environmental Medicine; ATTEND Preventive Medicine Preventive Medicine/Occupational Environmental Medicine
PROC: 0JBR0ZZ Excision of Left Foot Subcutaneous Tissue and Fascia, Open Approach (ICD-10-PCS; principal; 2021-08-16 13:40)
PROC: 02HV33Z Insertion of Infusion Device into Superior Vena Cava, Percutaneous Approach (ICD-10-PCS; 2021-08-19)
DX: A41.9 Sepsis, unspecified organism (principal); E11.52 Type 2 diabetes mellitus with diabetic peripheral angiopathy with gangrene; E11.42 Type 2 diabetes mellitus with diabetic polyneuropathy; L97.529 Non-pressure chronic ulcer of other part of left foot with unspecified severity; L03.116 Cellulitis of left lower limb; D64.9 Anemia, unspecified; M86.8X7 Other osteomyelitis, ankle and foot; E66.01 Morbid (severe) obesity due to excess calories; E11.65 Type 2 diabetes mellitus with hyperglycemia; E11.628 Type 2 diabetes mellitus with other skin complications; E11.69 Type 2 diabetes mellitus with other specified complication; I11.9 Hypertensive heart disease without heart failure; I25.10 Atherosclerotic heart disease of native coronary artery without angina pectoris; M71.20 Synovial cyst of popliteal space [Baker], unspecified knee; E11.621 Type 2 diabetes mellitus with foot ulcer; Z20.822 Contact with and (suspected) exposure to COVID-19; Z83.3 Family history of diabetes mellitus; Z79.84 Long term (current) use of oral hypoglycemic drugs; Z79.899 Other long term (current) drug therapy; Z68.44 Body mass index [BMI] 60.0-69.9, adult
CPT/HCPCS: 36415; 71045; 73706; 76376; 80048; 80053; 81000; 82962; 83605; 83735; 83880; 84100; 84484; 85025; 85610-TC; 85651-TC; 85730-TC; 86140; 87040; 87070; 87070-TC; 87075-TC; 87081; 87186-TC; 93005; 93923; 93970; 94010; 94760; 96365; 96366; 96367; 97112-GP; 97163-GP; 99285; J0290; J1170; J1450; J1650; J2543; J2704; J3010; J3370; J3490; J7030; J7040; J7060; Q9967